=== PATIENT | male | born 1950 | race Caucasian/White ===

== ENCOUNTER 2017-04-27 14:41 | Inpatient (IN) ==
--- NOTE | 2017-04-27 14:59 | Emergency Department Note ---
Disposition Clinical Impression: Failure to thrive Qualifiers: Failure to thrive age range: in adult Qualified Code(s): R62.7 - Adult failure to thrive Disposition: Admitted As Inpatient Condition: Good Time of Disposition: 19:35 General Adult HPI - General Chief complaint: ED Weakness Stated complaint: " Dizziness, weakness" Time Seen by Provider: 04/27/17 14:43 Source: patient Limitations: no limitations Nursing Notes Reviewed: Yes Vital Signs Reviewed: Yes - History of Present Illness HPI Narrative: Left group home AMA 2 days ago. Has been living in the [facility] ever since. Has not been able to eat or drink due to lack of resources. Pain Scale: 0 - Related Data Home Medications Medication Instructions Recorded Confirmed No Known Home Drugs 04/27/17 04/27/17 Allergies Allergy/AdvReac Type Severity Reaction Status Date / Time No Known Allergies Allergy Verified 03/01/16 14:48 All systems ED: reviewed and negative except as stated. Constitutional: Denies: fever, chills ENT ED: Denies: congestion Cardiovascular: Denies: chest pain, palpitations, syncope Respiratory: Denies: cough, dyspnea, wheezes Gastrointestinal: Denies: abdominal pain, nausea, vomiting, diarrhea, hematemesis, melena Genitourinary: Denies: urgency, dysuria, frequency, hematuria Musculoskeletal: Denies: back pain, neck pain Integumentary: Denies: rash, abrasion Neurological: Denies: headache, weakness, numbness, paresthesias Past Medical History - Past Medical History Attestation: Yes The following information was validated with the patient. Source: patient Medical history: Reports: COPD, diabetes, hyperlipidemia, hypertension Psychiatric history: Reports: no psych history - Social History Smoking Status: Current every day smoker Smokeless Tobacco Status: No Alcohol use: Reports: rarely Drug use: Reports: none Physical Exam - General Limitations: no limitations General appearance: alert, in no apparent distress, other (Very disheveled. Not dressed appropriately.) - Head Head exam: atraumatic, normocephalic, normal inspection - Eye Eye exam: Present: normal appearance, PERRL, EOMI - ENT ENT exam: normal exam, normal oropharynx, mucous membranes dry - Neck Neck exam: Present: normal inspection, full ROM, trachea midline. Absent: tenderness, meningismus, lymphadenopathy - Chest Chest inspection: Present: normal inspection, symmetric chest wall rise. Absent : tenderness, rash, abscess - Respiratory Respiratory exam: Present: normal lung sounds bilaterally. Absent: respiratory distress, accessory muscle use - Cardiovascular Cardiovascular exam: Present: regular rate, normal rhythm, normal heart sounds - Abdominal Exam Abdominal exam: Present: soft, Non-Tender. Absent: tenderness, distention, guarding, rebound, rigidity, organomegaly, Bennett's sign, Rovsing's sign, tenderness at McBurney's Point - Extremities Exam Extremities exam: Present: normal inspection, full ROM, normal capillary refill. Absent: tenderness, pedal edema - Back Exam Back exam: Present: normal inspection, full ROM. Absent: tenderness, CVA tenderness (R), CVA tenderness (L) - Neurological Exam Neurological exam: Present: alert, oriented X3 - Psychiatric Psychiatric exam: Present: normal affect, depressed - Skin Skin exam: Present: warm, dry, intact, normal color. Absent: rash, cyanosis, diaphoresis, erythema Course Course Narrative: The patient left the group home 2 days ago AGAINST MEDICAL ADVICE. States he has been living in the [facility] for the past 2 days. Has not been able to eat or drink. Does have a history of diabetes as well as hypertension. Also some mood disturbances. States that he has not been able to take any of this medication as he does not have this. He is sitting on the bed and appears to be tearful at this time. He denies any SI or HI. He denies any visual or auditory hallucinations. He has no medical complaints currently. States that he is hungry. Sounds are clear heart tones are normal. Abdomen is soft nontender. Denies any blood from his urine or stool. Denies any abdominal pain nausea vomiting or diarrhea. Patient is hypertensive while here. He does appear very disheveled. Has a foul smell about him. We will do basic lab workup on patient and likely admit him for failure to thrive. Does not appear as if the patient can care for himself. - Reevaluation(s) Reevaluation #1: We will admit patient for failure to thrive. - Consultations Consultation #1: Patient was accepted in stable condition by Sridhar denise nurse practitioner. Vital Signs Temperature 98.8 F 04/27/17 14:50 Pulse Rate 93 04/27/17 14:50 Respiratory Rate 18 04/27/17 14:50 Blood Pressure 194/111 10/13/17 14:50 O2 Sat by Pulse Oximetry 94 04/27/17 14:50 Temperature 98.0 F 04/28/17 08:10 Pulse Rate 87 04/28/17 08:10 Respiratory Rate 16 04/28/17 08:10 Blood Pressure 134/77 04/28/17 08:10 O2 Sat by Pulse Oximetry 94 04/28/17 08:10 Oxygen Delivery Oxygen Delivery Room Air Medical Decision Making - Lab Data Lab results reviewed: Yes I reviewed the patient's lab results. Result diagrams: 04/28/17 00:15 04/28/17 00:15 Lab Results 04/27/17 04/27/17 04/27/17 Range/Units 15:14 15:14 15:14 WBC 12.1 H (4.3-11.1) K/mcL RBC 4.97 (4.19-5.50) M/mcL Hgb 15.3 (12.9-16.9) g/dL Hct 44.6 (37.5-50.1) % MCV 89.7 (83.0-100.0) fL MCH 30.8 (28.0-33.3) pg MCHC 34.3 (31.6-35.5) g/dL RDW 13.2 (11.5-14.5) % Plt Count 241 (140-400) K/mcL MPV 10.2 (9.4-12.4) fL Immature Gran % 0.2 (0-4) % Seg Neutrophils % 77.3 % Lymphocytes % 12.0 % Monocytes % 9.5 % Eosinophils % 0.5 % Basophils % 0.5 % Neutrophils # 9.4 H (1.6-8.9) K/mcL Lymphocytes # 1.5 (0.6-4.6) K/mcL Monocytes # 1.2 (0.0-1.3) K/mcL Eosinophils # 0.1 (0.0-0.6) K/mcL Basophils # 0.1 (0.0-0.2) K/mcL Sodium 137 (136-145) mEq/L Potassium 4.1 (3.5-4.5) mEq/L Chloride 97 L (98-109) mEq/L Carbon Dioxide 31 H (19-29) mEq/L BUN 11 (8-26) mg/dL Creatinine 0.94 (0.72-1.25) mg/dL Est GFR ( Amer) > 60 (> 60) Est GFR (Non-Af Amer) > 60 (> 60) BUN/Creatinine Ratio 12 (6-26) Glucose 134 H (70-99) mg/dL Calculated Osmolality 285 (280-300) Calcium 9.9 (8.6-10.8) mg/dL Troponin I 0.01 (0-0.03) ng/mL Urine Color (Yellow) Urine Clarity (Clear) Urine pH (5.0-8.0) pH Units Ur Specific Holmes (1.010-1.025) Urine Protein (Neg-Trace) mg/dL Urine Glucose (UA) (Normal) mg/dL Urine Ketones (Negative) mg/dL Urine Blood (Negative) Urine Nitrite (Negative) Urine Bilirubin (Negative) Urine Urobilinogen (Normal) mg/dL Ur Leukocyte Esterase (Negative) Urine Microscopic RBC (0-3) per hpf Urine Microscopic WBC (0-3) per hpf Ur Squamous Epith Cells (None-Few) per lpf Urine Bacteria (None-Few) per hpf Hyaline Casts (None-Few) per lpf Ur Culture Indicated? (NO) 04/27/17 Range/Units 16:16 WBC (4.3-11.1) K/mcL RBC (4.19-5.50) M/mcL Hgb (12.9-16.9) g/dL Hct (37.5-50.1) % MCV (83.0-100.0) fL MCH (28.0-33.3) pg MCHC (31.6-35.5) g/dL RDW (11.5-14.5) % Plt Count (140-400) K/mcL MPV (9.4-12.4) fL Immature Gran % (0-4) % Seg Neutrophils % % Lymphocytes % % Monocytes % % Eosinophils % % Basophils % % Neutrophils # (1.6-8.9) K/mcL Lymphocytes # (0.6-4.6) K/mcL Monocytes # (0.0-1.3) K/mcL Eosinophils # (0.0-0.6) K/mcL Basophils # (0.0-0.2) K/mcL Sodium (136-145) mEq/L Potassium (3.5-4.5) mEq/L Chloride (98-109) mEq/L Carbon Dioxide (19-29) mEq/L BUN (8-26) mg/dL Creatinine (0.72-1.25) mg/dL Est GFR ( Amer) (> 60) Est GFR (Non-Af Amer) (> 60) BUN/Creatinine Ratio (6-26) Glucose (70-99) mg/dL Calculated Osmolality (280-300) Calcium (8.6-10.8) mg/dL Troponin I (0-0.03) ng/mL Urine Color Yellow (Yellow) Urine Clarity Clear (Clear) Urine pH 6.5 (5.0-8.0) pH Units Ur Specific Holmes 1.024 (1.010-1.025) Urine Protein 100 H (Neg-Trace) mg/dL Urine Glucose (UA) Normal (Normal) mg/dL Urine Ketones Trace H (Negative) mg/dL Urine Blood Negative (Negative) Urine Nitrite Negative (Negative) Urine Bilirubin Negative (Negative) Urine Urobilinogen Normal (Normal) mg/dL Ur Leukocyte Esterase Negative (Negative) Urine Microscopic RBC 5-15 H (0-3) per hpf Urine Microscopic WBC 0-3 (0-3) per hpf Ur Squamous Epith Cells Many H (None-Few) per lpf Urine Bacteria None Seen (None-Few) per hpf Hyaline Casts None Seen (None-Few) per lpf Ur Culture Indicated? NO (NO) - Radiology Data Radiology results reviewed: Yes I reviewed the patient's radiology results. Chest X-Ray 04/27/17 14:58 IMPRESSION: No acute abnormality. D/ / 04/27/2017 15:24:44 Kaz Rivera MD / fabrizio Interpreting Provider: Kaz Rivera MD - EKG Data EKG #1 EKG attestation: Yes I reviewed and interpreted this EKG. EKG results narrative: Normal sinus rhythm at a rate of 77. AL interval is 132. Scientology is 110. QT is 371. QTC is 403. No signs of acute ischemia. No significant change from previous EKG dated 2015. Attestation Statement - Attestation Attestation: I, Hi Mcdonald, examined this patient and my medical decision-making was reviewed with the PLANNING RN/PA/Advanced Practice Nurse/Resident Physician. I agree with the documented findings, disposition and treatment plan as described except to the extent set forth below. 59-year-old male brought to the emergency department by EMS for weakness. Patient states he has been living in the [facility] after signing out AMA from the group home for the past few weeks. Patient states he signed out from the group home because they were "being mean to him", he is unable to describe specific instances as to why he signed out. Patient states he has been living with friends however they do not have enough food to or water to support him and he is becoming weak. Patient has not syncopized, denies chest pain, shortness of breath, palpitations, abdominal pain, diarrhea, vomiting. Patient will be admitted to hospital for further care and evaluation of failure to thrive.
[2017-04-27 15:28] LABS: Basophils # 0.1 K/mcL (0.0-0.2); Basophils % 0.5 %; Eosinophils # 0.1 K/mcL (0.0-0.6); Eosinophils % 0.5 %; Hematocrit 44.6 % (37.5-50.1); Hemoglobin 15.3 g/dL (12.9-16.9); Immature Granulocytes % 0.2 % (0-4); Lymphocytes # 1.5 K/mcL (0.6-4.6); Mean Corpuscular HGB Conc 34.3 g/dL (31.6-35.5); Mean Corpuscular Hemoglobin 30.8 pg (28.0-33.3); Mean Corpuscular Volume 89.7 fL (83.0-100.0); Mean Platelet Volume 10.2 fL (9.4-12.4); Monocytes # 1.2 K/mcL (0.0-1.3); Monocytes % 9.5 %; Neutrophils # 9.4 K/mcL (1.6-8.9); Platelet Count 241 K/mcL (140-400); Red Blood Count 4.97 M/mcL (4.19-5.50); Red Cell Distribution Width 13.2 % (11.5-14.5); Segmented Neutrophils % 77.3 %
[2017-04-27 15:45] LABS: BUN/Creatinine Ratio 12 (6-26); Blood Urea Nitrogen 11 mg/dL (8-26); Calcium 9.9 mg/dL (8.6-10.8); Carbon Dioxide 31 mEq/L (19-29); Chloride 97 mEq/L (98-109); Glucose 134 mg/dL (70-99); Osmolality,Calculated 285 (280-300); Potassium 4.1 mEq/L (3.5-4.5); Sodium 137 mEq/L (136-145); eGFR For African Americans > 60 (> 60); eGFR For Non-African Americans > 60 (> 60)
[2017-04-27 16:34] LABS: Bilirubin,Urine Negative (Negative); Blood,Urine Negative (Negative); Clarity,Urine Clear (Clear); Color,Urine Yellow (Yellow); Glucose,Urine (UA) Normal (Normal); Ketones,Urine Trace mg/dL (Negative); Leukocyte Esterase,Urine Negative (Negative); Nitrite,Urine Negative (Negative); PH,Urine 6.5 pH Units (5.0-8.0); Protein,Urine 100 mg/dL (Neg-Trace); Specific Gravity,Urine 1.024 (1.010-1.025); Urobilinogen,Urine Normal (Normal)
[2017-04-27 16:36] LABS: Bacteria,Urine None Seen per hpf (None-Few); Hyaline Casts,Urine None Seen per lpf (None-Few); Squamous Epithelial Cell,Urine Many per lpf (None-Few); WBC,Urine 0-3 per hpf (0-3)
[2017-04-27] MEDS ORDERED: D5% in Water 1,000 ML IVC PRN (21:11)
[2017-04-27] MEDS ORDERED: Dextrose Gel 15 GM PO PRN ×2 (21:11)
[2017-04-27] MEDS ORDERED: *HR* Dextrose 50 % in Water (Syg) 50 ML SYRINGE IVP PRN (21:11)
[2017-04-27] MEDS: Insulin LISPRO 300 UNITS/3 ML VIAL SQ SCH (22:36)
[2017-04-27] MEDS ORDERED: Ondansetron 4 MG/2 ML VIAL IVP PRN (22:56)
[2017-04-27] MEDS ORDERED: Naloxone 0.4 MG/ML INJ IVP PRN (22:56)
[2017-04-27] MEDS ORDERED: *HR* HYDROcodone/Acet 5/325 mg TABLET PO PRN (22:56)
[2017-04-27] MEDS ORDERED: *HR* LORazepam 2 MG/ML VIAL IVP PRN (23:00)
--- NOTE | 2017-04-27 23:13 | Internal Med History&Physical ---
<Sridhar Villasenor - Last Filed: 04/27/17 23:42> Date of Encounter: 04/27/17 Time of Encounter: 21:00 Assessment and Plan (1) Leukocytosis Current visit: Yes Status: Acute Patient presents with WBC of 12.1 on admission. Denies recent illness, fever, chills, N/V. U/A negative for culture. Blood cultures x2 ordered. Will administer IVPB Rocephin 1,000 mg daily for infection coverage and adjust abx based on culture results. Mr. Castillo is a moderate risk for further morbidity based on current infection, history and risk factors, and lack of current resources and will be placed as observation status. Qualifiers: Leukocytosis type: unspecified Qualified Code(s): D72.829 - Elevated white blood cell count, unspecified (2) Failure to thrive Current visit: Yes Status: Acute Patient reports leaving SNF AMA two days ago and living in the [facility]. States he' s had nothing to eat or drink for two days and has no medications for his current medical conditions. SW consult ordered to help with possible placement for post-discharge planning. Diabetes education consult and nutrition consults ordered. Psychiatric consult ordered d/t patient's hx of anxiety, depression, and schizophrenia. Ativan 1 mg IVP Q6 for anxiety. Qualifiers: Failure to thrive age range: in adult Qualified Code(s): R62.7 - Adult failure to thrive (3) Homeless Current visit: Yes Status: Acute Patient reports leaving SNF AMA two days ago and living in the [facility]. Picked up by EMT squad and brought to ED. States he's had nothing to eat or drink for two days. SW consult ordered to help with possible placement for post-discharge planning. Diabetes education consult and nutrition consults ordered. Psychiatric consult ordered d/t patient's hx of anxiety, depression, and schizophrenia. Ativan 1 mg IVP Q6 for anxiety. Monitor patient for signs of agitation or increased anxiety. (4) COPD (chronic obstructive pulmonary disease) Current visit: Yes Status: Chronic Hx of chronic COPD. Patient has mild expiratory wheezes on exam. DuoNebs Q6 scheduled. No O2 at this time d/t patient being high 90's on RA. Qualifiers: COPD type: unspecified COPD Qualified Code(s): J44.9 - Chronic obstructive pulmonary disease, unspecified (5) Diabetes Current visit: Yes Status: Chronic Patient reports history of chronic diabetes controlled by oral antihyperglycemic 's. No medications currently due to being homeless. BG checks before meals and at bedtime. Medium dose correction insulin sliding scale ordered with hypoglycemic protocol. A1c ordered in a.m. labs. Qualifiers: Diabetes mellitus type: type 2 Diabetes mellitus complication status: with unspecified complications Diabetes mellitus terminal gauger supervisor insulin use: without prison use Qualified Code(s): E11.8 - Type 2 diabetes mellitus with unspecified complications (6) HTN (hypertension) Current visit: Yes Status: Chronic Hx of chronic HTN. No meds currently d/t being homeless. Monitor patient and VS. Lisinopril ordered. Qualifiers: Hypertension type: essential hypertension Qualified Code(s): I10 - Essential (primary) hypertension (7) HLD (hyperlipidemia) Current visit: Yes Status: Chronic Hx of chronic HLD. Patient currently not taking medications due to being homeless. Lipid panel ordered in a.m. labs. Lipitor 20 mg daily ordered. Qualifiers: Hyperlipidemia type: pure hypercholesterolemia Qualified Code(s): E78.00 - Pure hypercholesterolemia, unspecified; E78.0 - Pure hypercholesterolemia (8) DVT prophylaxis Current visit: Yes Status: Acute Bilateral SCDs on patient's LEs for DVT prophylaxis due to patient's anxiety and psychiatric state. Will avoid unnecessary needle sticks. Internal Medicine - H&P: HPI Chief complaint: Weakness/Homeless Admitted From: Emergency Dept Plans for Post Hospital Care: Transfer Other (SW consult to help determine placement of patient) History of present illness: Mr. Castillo is a 67 year old male with medical history of COPD, diabetes controlled with oral anti-hyperglycemics, hyperlipidemia, and hypertension presents from the ED with chief complaint of weakness, dizziness, difficulty urinating, and homelessness. Patient states he was a resident at [facility] until 2 days ago when he left AMA. He states he has been living in the [facility] for the past 2 days and has not been able to eat or drink due to lack of resources. He states that he has a history of psychiatric issues including anxiety and schizophrenia. Patient has no SI or HI at this time. Patient states he currently does not take any medications for his diabetes, HLD , or HTN due to being homeless. He denies recent illness, fever, chills, vomiting, nausea, headache, changes in vision, abdominal pain, chest pain, palpitations, numbness and tingling, neurological deficits, weakness, unusual bleeding, lightheadedness, presyncope, or syncope. Past Med Surg Social Fam HX - Past Medical History Source: patient Medical history: COPD, diabetes, hyperlipidemia, hypertension Psychiatric history: anxiety, depression, schizophrenia - Social History Smoking Status: Current every day smoker Packs per day: 3 PPD when he has them Smokeless Tobacco Status: No Alcohol use: rarely Drug use: none Occupational status: unemployed Current living situation: Homeless Activity Level: Independent ambulation, Uses cane/walker Recent Out of Country Travel Within the Last 8 Weeks: No Exposure or Possible Exposure to Illness During Travel: No - Family History Father Race: Family Member Ethnicity: Non- Living Status: Age at : 85 Cause of : Renal failure Hx Family Genitourinary Disorders: Yes (CKD) Mother Race: Family Member Ethnicity: Non- Living Status: Age at : 60 Cause of : CA Hx Family Cardiac Disorders: Yes (CA) Hx Family Endocrine Disorder: Yes (DM) Brother Race: Family Member Ethnicity: Non- Living Status: Age at : 64 Cause of : Liver disease Hx Family Endocrine Disorder: Yes (Liver disease) Sister History Unknown: Yes Race: Family Member Ethnicity: Non- Living Status: Still Living Internal Medicine - H&P: Meds No Known Home Drugs 04/27/17 [History] 3 Allergy/AdvReac Type Severity Reaction Status Date / Time No Known Allergies Allergy Verified 03/01/16 14:48 All Systems PM: A 10-system review of systems was performed and is negative for pertinent findings except as documented above in the HPI. - Constitutional Constitutional: no chills, no fever(s), no night sweats - EENT Eyes: no change in vision, no discharge, no pain, no photophobia Ears: no ear discharge, no ear pain, no tinnitus Nose, mouth and throat: no dysphagia, no nasal discharge, no neck pain, no sore throat - Breasts Breasts: as per HPI - Cardiovascular Cardiovascular ROS IM: no chest pain, no diaphoresis, no dyspnea, no lightheadedness, no palpitations, no syncope - Respiratory Respiratory: no cough, no dyspnea, no wheezing, no excessive phlegm production - Gastrointestinal Gastrointestinal: no abdominal pain, no diarrhea, no hematemesis, no hematochezia, no melena, no nausea, no vomiting - Genitourinary Genitourinary ROS male: as per HPI, difficulty urinating - Musculoskeletal Musculoskeletal ROS IM: no numbness, no tingling - Integumentary Integumentary IM: no rash, no unusual bruising - Neurological Neurological ROS: no confusion, no convulsions, no focal weakness, no numbness, no tingling, no tremor(s) - Psychiatric Psychiatric: as per HPI, anxiety, depression - Endocrine Endocrine IM: as per HPI - Hematologic/Lymphatic Hematologic/Lymphatic: no easy bruising - Allergic/Immunologic Allergic/Immunologic: as per HPI - Constitutional Vitals: Temp Pulse Resp BP Pulse Ox 99.0 F 84 19 175/94 94 04/27/17 20:35 04/27/17 20:35 04/27/17 20:35 04/27/17 20:35 04/27/17 20:35 General appearance: Present: cooperative, disheveled, mild distress (Anxiety), A &O X 3, pleasant, answers questions appropriately - Head Head exam: Present: atraumatic, normocephalic - Eye Eye exam: Present: PERRL, conjuntiva pink, sclera anicteric Pupils: Present: PERRL - ENT ENT exam: Present: normal exam, normal external ear exam - Neck Neck exam general surgery: Present: normal inspection, supple, trachea midline. Absent: lymphadenopathy - Respiratory Respiratory exam: Present: CTAB. Absent: accessory muscle use, rales, rhonchi, wheezes - Cardiovascular Cardiovascular exam: Present: RRR, +S1, +S2. Absent: diastolic murmur, gallop, rubs, systolic murmur - GI/Abdominal GI/Abdominal exam: Present: normal bowel sounds, soft, no peritoneal signs. Absent: distended, tenderness - Rectal Rectal exam: Present: deferred - Additional comments: exam deferred. - Extremities Exam Extremities exam: Present: warm, radial pulses palpable and symmetrical. Absent : calf tenderness, cyanotic, pedal edema - Back Exam Back exam: Present: normal inspection - Neurological Exam Neurological exam: Present: CN II-XII intact, oriented X3, no focal deficits. Absent: pronater drift, facial droop, speech deficit - Psychiatric Psychiatric exam: Present: anxious - Skin Skin exam: Present: dry, intact Internal Med - H&P Results - Labs CBC & Chem 7: 04/27/17 15:14 04/27/17 15:14 - EKG Data EKG shows normal: sinus rhythm - EKG Data Prior EKG available for review: yes When compared to previous EKG: there is no significant change EKG comments: 04/27/17 23:22 EKG dated 03/01/16 shows sinus rhythm. EKG dated 04/27/17 shows sinus rhythm, indeterminate axis. - Diagnostic Studies Chest x-ray Additional comments: Impressions Chest X-Ray 04/27/17 14:58 IMPRESSION: No acute abnormality. D/ / 04/27/2017 15:24:44 Kaz iRvera MD / fabrizio Interpreting Provider: Kaz Rivera MD <Marisol Degroot K - Last Filed: 04/28/17 02:33> Date of Encounter: 04/27/17 Internal Medicine - H&P: HPI History of present illness: Mr. Castillo is a 67 year old male All Systems PM: A 10-system review of systems was performed and is negative for pertinent findings except as documented above in the HPI. - Constitutional Vitals: Temp Pulse Resp BP Pulse Ox 98.5 F 72 22 156/77 92 04/28/17 00:16 04/28/17 00:16 04/28/17 00:16 04/28/17 00:16 04/28/17 00:16 Internal Med - H&P Results - Labs CBC & Chem 7: 04/28/17 00:15 04/28/17 00:15 Labs: Short CBC 04/28/17 Range/Units 00:15 WBC 11.9 H (4.3-11.1) K/mcL Hgb 15.3 (12.9-16.9) g/dL Hct 44.9 (37.5-50.1) % Plt Count 229 (140-400) K/mcL Neutrophils # 8.4 (1.6-8.9) K/mcL BMP 04/28/17 00:15 Sodium 138 Potassium 3.7 Chloride 99 Carbon Dioxide 27 BUN 14 Creatinine 0.96 Glucose 119 H Calcium 9.7 Liver Function 04/28/17 Range/Units 00:15 Total Bilirubin 0.3 (0.2-1.2) mg/dL AST 24 (5-34) Units/L ALT 14 (0-55) Units/L Alkaline Phosphatase 45 (38-126) Units/L Albumin 4.0 (3.5-5.0) g/dL - Attending Attestation Patient was seen personally and independently and examined. Apparently he was in intermediate and left AMA. He mentions that some people came to intermediate and invited him to stay in the words. Patient states that intermediate staff was conspired against him. Patient has history of schizophrenia/ paranoia. On physical examination he is quite unremarkable. His white count was elevated therefore we started Rocephin but if there is no obvious sign of infection then it can be discontinued for discharge. He was complaining of difficulty in urination therefore Flomax has been added. We have put him on sliding scale for his diabetes and he started him on lisinopril for his blood pressure. I would recommend to the morning team to call psychiatry as I think ideally patient should be a long-term psychiatric unit.
[2017-04-27] MEDS ORDERED: *HR* LORazepam 1 MG TABLET PO PRN (23:20)
[2017-04-27] MEDS: Pantoprazole 40 MG VIAL IVP SCH (23:50)
[2017-04-27] MEDS: Aspirin Enteric Coated 81 MG Tablet PO SCH (23:50)
[2017-04-28 00:35] LABS: Basophils # 0.1 K/mcL (0.0-0.2); Basophils % 0.6 %; Eosinophils # 0.2 K/mcL (0.0-0.6); Eosinophils % 1.3 %; Hematocrit 44.9 % (37.5-50.1); Hemoglobin 15.3 g/dL (12.9-16.9); Immature Granulocytes % 0.3 % (0-4); Lymphocytes # 2.1 K/mcL (0.6-4.6); Lymphocytes % 17.7 %; Mean Corpuscular HGB Conc 34.1 g/dL (31.6-35.5); Mean Corpuscular Hemoglobin 31.1 pg (28.0-33.3); Mean Corpuscular Volume 91.3 fL (83.0-100.0); Mean Platelet Volume 10.5 fL (9.4-12.4); Monocytes # 1.2 K/mcL (0.0-1.3); Monocytes % 9.6 %; Neutrophils # 8.4 K/mcL (1.6-8.9); Platelet Count 229 K/mcL (140-400); Red Blood Count 4.92 M/mcL (4.19-5.50); Red Cell Distribution Width 13.2 % (11.5-14.5); Segmented Neutrophils % 70.5 %
[2017-04-28 00:46] LABS: INR 1.1; Prothrombin Time 11.6 Seconds (9.4-12.1)
[2017-04-28 00:48] LABS: Activated Partial Thrombo Time 26.7 Seconds (26.0-36.0)
[2017-04-28 00:52] LABS: Alanine Aminotransferase 14 Units/L (0-55); Albumin/Globulin Ratio 1.2 (1.1-2.2); Alkaline Phosphatase 45 Units/L (38-126); Aspartate Amino Transferase 24 Units/L (5-34); BUN/Creatinine Ratio 15 (6-26); Bilirubin,Total 0.3 mg/dL (0.2-1.2); Blood Urea Nitrogen 14 mg/dL (8-26); Calcium 9.7 mg/dL (8.6-10.8); Carbon Dioxide 27 mEq/L (19-29); Chloride 99 mEq/L (98-109); Cholesterol 124 mg/dL (< 200); Globulin 3.3 g/dL (2.4-3.5); Glucose 119 mg/dL (70-99); HDL Cholesterol 31 mg/dL (40-59); LDL Cholesterol,Calculated 74 mg/dL (0-99); Osmolality,Calculated 288 (280-300); Potassium 3.7 mEq/L (3.5-4.5); Sodium 138 mEq/L (136-145); Total Protein 7.3 g/dL (6.0-8.3); Triglycerides 96 mg/dL (< 150); eGFR For African Americans > 60 (> 60); eGFR For Non-African Americans > 60 (> 60)
[2017-04-28 01:20] LABS: Hemoglobin A1C 5.7 %
[2017-04-28] MEDS: Ipratropium/Albuterol Neb 3 ML IH SCH ×2 (04:30→10:58)
[2017-04-28] MEDS: Insulin LISPRO 300 UNITS/3 ML VIAL SQ SCH ×4 (10:14→20:55)
[2017-04-28] MEDS: Acetaminophen 325 MG TABLET PO PRN (10:15)
[2017-04-28] MEDS: Aspirin Enteric Coated 81 MG Tablet PO SCH (10:15)
[2017-04-28] MEDS: Pantoprazole 40 MG VIAL IVP SCH (10:16)
--- NOTE | 2017-04-28 10:47 | Consult Note ---
Date of Encounter: 04/28/17 Time of Encounter: 10:45 Assessment & Recommendation (1) Adjustment disorder with mixed disturbance of emotions and conduct Current visit: Yes Status: Acute Assessment & Recommendation: At this point I would recommend continue when necessary antianxiety medications for example Ativan on Klonopin. I would recommend a referral to patient care assistant to help finding a better placement for the patient. At this point there is no further psychiatric intervention or furthur treatment is needed. (2) History of schizophrenia Current visit: Yes Status: Acute Assessment & Recommendation: At this point patient is denying any overt psychotic symptoms. He is able to engage in a meaningful conversation. He does not seem to be responding to internal stimuli. He does not wish to talk about his previous diagnoses or any treatment strategies related to his previous diagnosis of schizophrenia. Patient is oriented to time place and person and is demonstrating the capacity to comprehend and understand his treatment choices and has the ability to make informed consent and choices for himself. History of Present Illness Patient: new to practice Requesting Physician: Rinku Loja MD Reason for consult: History of schizophrenia and anxiety History of present illness: Mr. Castillo is a 67 year old male who [facility] after he was brought in with complaints of leaving skilled nursing against medical advise and was living in the [facility] with a couple of friends for the last 2 nights. Patient has history of schizophrenia. A psych consult was given to evaluate patient and for further recommendations regarding his history of schizophrenia. Upon interviewing today patient seems to be alert and oriented, coherent and logical and goal-directed. He told me that he was placed in a skilled nursing on the recommendation of his pillowcase maker approximately a year and a half ago. He reported that this skilled nursing is a bad place for him and he does not wish to be there anymore. He reported that he is not receiving the proper treatment from the staff at the skilled nursing. When I started exploring his past history of schizophrenia patient told me very clearly that he does not wish to talk about his prior diagnosis or treatment. He denies any auditory hallucinations or any delusions. He was able to engage in a meaningful conversation without any loosening of association or tangentiality. He did appear slightly anxious and nervous. He was denying any depressive symptoms. He was denying any suicidal or homicidal ideation he told me "I want to live that is why I left skilled nursing and am here to get help finding a different skilled nursing". Throughout the interview patient remained focus on the topic and did not appear to be responding to any internal stimuli. He is not receiving any psychiatric care and is not on any psychotropic medications. Patient is his own guardian and he understands and comprehends fairly well and is demonstrating the capacity to make decisions and choices for himself CC: Rinku Loja MD Past Med Surg Social Fam HX - Past Medical History Medical history: COPD, diabetes, hyperlipidemia, hypertension - Past Psychiatric History Family psychiatric history: Unknown Family History of Suicide: Unknown - Social History Smoking Status: Current every day smoker Smokeless Tobacco Status: No Alcohol use: rarely Drug use: none Occupational status: retired, disabled Current living situation: Homeless Activity Level: Independent ambulation Recent Out of Country Travel Within the Last 8 Weeks: No Exposure or Possible Exposure to Illness During Travel: No Additional social history: Patient reported that he was born in [place]. He has 2 sisters. He was once his many years ago. He does not have any children. He is on disability and is currently homeless. Denies any legal issues - Family History Father Race: Family Member Ethnicity: Non- Living Status: Age at : 85 Cause of : Renal failure Hx Family Cardiac Disorders: Yes (RI) Hx Family Genitourinary Disorders: Yes (CKD) Mother Race: Family Member Ethnicity: Non- Living Status: Age at : 60 Cause of : RI Hx Family Cardiac Disorders: Yes (RI) Hx Family Endocrine Disorder: Yes (DM) Brother Race: Family Member Ethnicity: Non- Living Status: Age at : 64 Cause of : Liver disease Hx Family Endocrine Disorder: Yes (Liver disease) Sister History Unknown: Yes Race: Family Member Ethnicity: Non- Living Status: Still Living Medications & Allergies No Known Home Drugs 04/27/17 [History] 3 Allergy/AdvReac Type Severity Reaction Status Date / Time No Known Allergies Allergy Verified 03/01/16 14:48 Review of Systems Psychiatric: Reports: anxiety, irritability Mental Status Exam Patient orientation: Yes Person, Yes Time, Yes Place Level of alertness: Alert Patient appearance: Unkempt Behavior: anxious, restless Psychomotor activity: Increased Eye contact: Maintains Eye Contact Mood description: Anxious Affect description: dysphoric, anxious Speech pattern: Normal rate, Normal rhythm, Normal tone Speech volume: Normal Thought process: Linear, Goal Oriented Thought content: No Suicidal ideation, No Homicidal ideation, No Overt delusions Perceptual disturbances: No Auditory hallucinations, No Visual hallucinations Attention span: Capable of Focused Attention Memory description: Grossly Intact Intelligence estimate: Average Judgment: Limited Insight: Minimal Results - Vital Signs Vital signs: Temp Pulse Resp BP Pulse Ox 98.0 F 87 16 134/77 94 04/28/17 08:10 04/28/17 08:10 04/28/17 08:10 04/28/17 08:10 04/28/17 08:10 - Labs Labs: Laboratory Last Values WBC 11.9 K/mcL (4.3-11.1) H 04/28/17 00:15 RBC 4.92 M/mcL (4.19-5.50) 04/28/17 00:15 Hgb 15.3 g/dL (12.9-16.9) 04/28/17 00:15 Hct 44.9 % (37.5-50.1) 04/28/17 00:15 MCV 91.3 fL (83.0-100.0) 04/28/17 00:15 MCH 31.1 pg (28.0-33.3) 04/28/17 00:15 MCHC 34.1 g/dL (31.6-35.5) 04/28/17 00:15 RDW 13.2 % (11.5-14.5) 04/28/17 00:15 Plt Count 229 K/mcL (140-400) 04/28/17 00:15 MPV 10.5 fL (9.4-12.4) 04/28/17 00:15 Immature Gran % 0.3 % (0-4) 04/28/17 00:15 Seg Neutrophils % 70.5 % 04/28/17 00:15 Lymphocytes % 17.7 % 04/28/17 00:15 Monocytes % 9.6 % 04/28/17 00:15 Eosinophils % 1.3 % 04/28/17 00:15 Basophils % 0.6 % 04/28/17 00:15 Neutrophils # 8.4 K/mcL (1.6-8.9) 04/28/17 00:15 Lymphocytes # 2.1 K/mcL (0.6-4.6) 04/28/17 00:15 Monocytes # 1.2 K/mcL (0.0-1.3) 04/28/17 00:15 Eosinophils # 0.2 K/mcL (0.0-0.6) 04/28/17 00:15 Basophils # 0.1 K/mcL (0.0-0.2) 04/28/17 00:15 PT 11.6 Seconds (9.4-12.1) 04/28/17 00:15 INR 1.1 04/28/17 00:15 APTT 26.7 Seconds (26.0-36.0) 04/28/17 00:15 Sodium 138 mEq/L (136-145) 04/28/17 00:15 Potassium 3.7 mEq/L (3.5-4.5) 04/28/17 00:15 Chloride 99 mEq/L (98-109) 04/28/17 00:15 Carbon Dioxide 27 mEq/L (19-29) 04/28/17 00:15 BUN 14 mg/dL (8-26) 04/28/17 00:15 Creatinine 0.96 mg/dL (0.72-1.25) 04/28/17 00:15 Est GFR ( Amer) > 60 (> 60) 04/28/17 00:15 Est GFR (Non-Af Amer) > 60 (> 60) 04/28/17 00:15 BUN/Creatinine Ratio 15 (6-26) 04/28/17 00:15 Glucose 119 mg/dL (70-99) H 04/28/17 00:15 POC Glucose 172 (58-89) H 04/27/17 20:33 Est Mean Plasma Glucose 117 mg/dl 04/28/17 00:15 Hemoglobin A1c 5.7 % (-5.6) H 04/28/17 00:15 Calculated Osmolality 288 (280-300) 04/28/17 00:15 Calcium 9.7 mg/dL (8.6-10.8) 04/28/17 00:15 Magnesium 2.0 mg/dL (1.6-2.6) 04/28/17 00:15 Total Bilirubin 0.3 mg/dL (0.2-1.2) 04/28/17 00:15 AST 24 Units/L (5-34) 04/28/17 00:15 ALT 14 Units/L (0-55) 04/28/17 00:15 Alkaline Phosphatase 45 Units/L (38-126) 04/28/17 00:15 Troponin I 0.01 ng/mL (0-0.03) 04/27/17 15:14 Serum Total Protein 7.3 g/dL (6.0-8.3) 04/28/17 00:15 Albumin 4.0 g/dL (3.5-5.0) 04/28/17 00:15 Globulin 3.3 g/dL (2.4-3.5) 04/28/17 00:15 Albumin/Globulin Ratio 1.2 (1.1-2.2) 04/28/17 00:15 Triglycerides 96 mg/dL (< 150) 04/28/17 00:15 Cholesterol 124 mg/dL (< 200) 04/28/17 00:15 LDL Cholesterol, Calc 74 mg/dL (0-99) 04/28/17 00:15 VLDL Cholesterol, Calc 19 mg/dL (< 31) 04/28/17 00:15 HDL Cholesterol 31 mg/dL (40-59) L 04/28/17 00:15 Cholesterol/HDL Ratio 4.0 (0-4.9) 04/28/17 00:15 Urine Color Yellow (Yellow) 04/27/17 16:16 Urine Clarity Clear (Clear) 04/27/17 16:16 Urine pH 6.5 pH Units (5.0-8.0) 04/27/17 16:16 Ur Specific [place] 1.024 (1.010-1.025) 04/27/17 16:16 Urine Protein 100 mg/dL (Neg-Trace) H 04/27/17 16:16 Urine Glucose (UA) Normal mg/dL (Normal) 04/27/17 16:16 Urine Ketones Trace mg/dL (Negative) H 04/27/17 16:16 Urine Blood Negative (Negative) 04/27/17 16:16 Urine Nitrite Negative (Negative) 04/27/17 16:16 Urine Bilirubin Negative (Negative) 04/27/17 16:16 Urine Urobilinogen Normal mg/dL (Normal) 04/27/17 16:16 Ur Leukocyte Esterase Negative (Negative) 04/27/17 16:16 Urine Microscopic RBC 5-15 per hpf (0-3) H 04/27/17 16:16 Urine Microscopic WBC 0-3 per hpf (0-3) 04/27/17 16:16 Ur Squamous Epith Cells Many per lpf (None-Few) H 04/27/17 16:16 Urine Bacteria None Seen per hpf (None-Few) 04/27/17 16:16 Hyaline Casts None Seen per lpf (None-Few) 04/27/17 16:16 Ur Culture Indicated? NO (NO) 04/27/17 16:16 Consult Discharge Plan - Plan Referrals: Ronaldo Parr MD [Primary Care Provider] -
--- NOTE | 2017-04-28 12:25 | Internal Med Progress Note ---
<Darshan Leyva - Last Filed: 04/28/17 14:53> Date of Encounter: 04/28/17 Time of Encounter: 12:09 - Assessment and plan (1) Leukocytosis Current Visit: Yes Status: Acute Assessment and plan: likely reactive from dehydration. Plan: continue oral hydration. no signs of infection at this time. UA shows no signs of UTI discontinued ceftriaxone and monitor. Qualifiers: Leukocytosis type: unspecified Qualified Code(s): D72.829 - Elevated white blood cell count, unspecified (2) Homeless Current Visit: Yes Status: Acute Assessment and plan: patient was formerly at [facility] because he was placed there by his forensic social worker. he left [place] a few days ago because he did not like how he was treated there. he left and stayed in the [facility] a few days. consult to renal social worker for placement. (3) COPD (chronic obstructive pulmonary disease) Current Visit: Yes Status: Chronic Assessment and plan: lungs clear on exam. change duonebs to PRN not in acute exacerbation. Qualifiers: COPD type: unspecified COPD Qualified Code(s): J44.9 - Chronic obstructive pulmonary disease, unspecified (4) Diabetes Current Visit: Yes Status: Chronic Assessment and plan: was taking metformin, but has not been taking it due to leaving senior living and being homeless. continue medium dose sliding scale, ADA diet. A1C 5.7% ACHS accuchecks. Qualifiers: Diabetes mellitus type: type 2 Diabetes mellitus complication status: with unspecified complications Diabetes mellitus measurement analyst insulin use: without measurement analyst use Qualified Code(s): E11.8 - Type 2 diabetes mellitus with unspecified complications (5) HTN (hypertension) Current Visit: Yes Status: Chronic Assessment and plan: continue lisinopril. patient has hx of HTN but was not on any meds. Qualifiers: Hypertension type: essential hypertension Qualified Code(s): I10 - Essential (primary) hypertension (6) HLD (hyperlipidemia) Current Visit: Yes Status: Chronic Assessment and plan: Hx of chronic HLD. Patient currently not taking medications due to being homeless. Lipid panel ordered in a.m. labs. 10 year ASCVD risk calculated at 46.7%. high intensity statin recommended Plan: stop atorvastatin 20, change to atorvastatin 40 Qualifiers: Hyperlipidemia type: pure hypercholesterolemia Qualified Code(s): E78.00 - Pure hypercholesterolemia, unspecified; E78.0 - Pure hypercholesterolemia (7) DVT prophylaxis Current Visit: Yes Status: Acute Assessment and plan: ambulate TID EPCD avoid unnecessary needle sticks due to patient's severe anxiety. - Constitutional Vitals: Temp Pulse Resp BP Pulse Ox 98.0 F 72 16 148/81 93 04/28/17 11:12 04/28/17 11:12 04/28/17 11:12 04/28/17 11:12 04/28/17 11:12 General appearance: Present: cooperative, disheveled, mild distress (Anxiety), A &O X 3, pleasant, answers questions appropriately Internal Medicine: Result - Labs CBC & Chem 7: 04/28/17 00:15 04/28/17 00:15 Labs: Short CBC 04/28/17 Range/Units 00:15 WBC 11.9 H (4.3-11.1) K/mcL Hgb 15.3 (12.9-16.9) g/dL Hct 44.9 (37.5-50.1) % Plt Count 229 (140-400) K/mcL Neutrophils # 8.4 (1.6-8.9) K/mcL BMP 04/28/17 00:15 Sodium 138 Potassium 3.7 Chloride 99 Carbon Dioxide 27 BUN 14 Creatinine 0.96 Glucose 119 H Calcium 9.7 Liver Function 04/28/17 Range/Units 00:15 Total Bilirubin 0.3 (0.2-1.2) mg/dL AST 24 (5-34) Units/L ALT 14 (0-55) Units/L Alkaline Phosphatase 45 (38-126) Units/L Albumin 4.0 (3.5-5.0) g/dL - ABG Interpretation ABG results: PT/INR, D-dimer PT 11.6 Seconds (9.4-12.1) 04/28/17 00:15 Consult Discharge Plan - Plan Referrals: Ronaldo Parr MD [Primary Care Provider] - <Rinku Loja - Last Filed: 04/28/17 17:16> Date of Encounter: 04/28/17 - Constitutional Vitals: Temp Pulse Resp BP Pulse Ox 97.8 F 68 16 147/80 97 04/28/17 16:11 04/28/17 16:11 04/28/17 16:11 04/28/17 16:11 04/28/17 16:11 Internal Medicine: Result - Labs CBC & Chem 7: 04/28/17 00:15 04/28/17 00:15 - ABG Interpretation ABG results: PT/INR, D-dimer PT 11.6 Seconds (9.4-12.1) 04/28/17 00:15 - Attending Attestation I have seen and examined the patient independently. I have discussed with resident Dr. Leyva regarding the management plan. Agree with the documentation. Patient has history of schizophrenia. He is homeless and need a new placement. We will continually monitor patient as he is in hospital. Psychiatry consult appreciated, ativan when necessary for anxiety. No further psychiatry treatment is recommended.
[2017-04-28] MEDS ORDERED: Ipratropium/Albuterol Neb 3 ML IH PRN (12:31)
[2017-04-29 01:37] LABS: Basophils # 0.1 K/mcL (0.0-0.2); Basophils % 0.9 %; Eosinophils # 0.3 K/mcL (0.0-0.6); Eosinophils % 2.8 %; Hematocrit 39.3 % (37.5-50.1); Immature Granulocytes % 0.2 % (0-4); Lymphocytes # 2.3 K/mcL (0.6-4.6); Lymphocytes % 26.5 %; Mean Corpuscular HGB Conc 34.1 g/dL (31.6-35.5); Mean Corpuscular Hemoglobin 30.7 pg (28.0-33.3); Mean Corpuscular Volume 90.1 fL (83.0-100.0); Mean Platelet Volume 10.5 fL (9.4-12.4); Monocytes % 10.8 %; Neutrophils # 5.2 K/mcL (1.6-8.9); Platelet Count 191 K/mcL (140-400); Red Blood Count 4.36 M/mcL (4.19-5.50); Segmented Neutrophils % 58.8 %
[2017-04-29 01:41] LABS: Hemoglobin 13.4 g/dL (12.9-16.9)
[2017-04-29 01:49] LABS: Alanine Aminotransferase 15 Units/L (0-55); Albumin 3.5 g/dL (3.5-5.0); Albumin/Globulin Ratio 1.3 (1.1-2.2); Alkaline Phosphatase 39 Units/L (38-126); Aspartate Amino Transferase 24 Units/L (5-34); BUN/Creatinine Ratio 15 (6-26); Bilirubin,Total 0.6 mg/dL (0.2-1.2); Blood Urea Nitrogen 16 mg/dL (8-26); Calcium 8.9 mg/dL (8.6-10.8); Carbon Dioxide 28 mEq/L (19-29); Chloride 97 mEq/L (98-109); Globulin 2.8 g/dL (2.4-3.5); Glucose 128 mg/dL (70-99); Osmolality,Calculated 281 (280-300); Potassium 4.1 mEq/L (3.5-4.5); Sodium 134 mEq/L (136-145); Total Protein 6.3 g/dL (6.0-8.3); eGFR For African Americans > 60 (> 60); eGFR For Non-African Americans > 60 (> 60)
[2017-04-29] MEDS: Aspirin Enteric Coated 81 MG Tablet PO SCH (07:32)
[2017-04-29] MEDS: Insulin LISPRO 300 UNITS/3 ML VIAL SQ SCH ×4 (07:34→20:37)
--- NOTE | 2017-04-29 11:10 | Electrocardiograph Report ---
[address] [address] Test Date: 2017-04-27 Pat Name: Sridhar Castillo Department: 104 Room: [facility] Gender: M Mechanical System Technician: ADILIA : 1950 Requested By: Kristina Dow Order Number: [id number] Reading MD: Hi Bang Measurements Intervals [place] Rate: 77 P: 17 RI: 132 QRS: 72 QRSD: 110 T: 26 QT: 371 QTc: 403 Interpretive Statements SINUS RHYTHM Electronically Signed On 04-29-2017 11:08:45 EDT by Hi Bang
--- NOTE | 2017-04-29 12:22 | Internal Med Progress Note ---
<Darshan Leyva - Last Filed: 04/29/17 12:19> Date of Encounter: 04/29/17 Time of Encounter: 12:20 - Assessment and plan (1) Homeless Current Visit: Yes Status: Acute Assessment and plan: patient was formerly at [facility] custodial because he was placed there by his social work manager. he left [place] a few days ago because he did not like how he was treated there. he left and stayed in the [facility] a few days. consult to social science manager for placement. (2) Leukocytosis Current Visit: Yes Status: Resolved Assessment and plan: resolved. Plan: continue oral hydration. no signs of infection at this time. UA shows no signs of UTI discontinued ceftriaxone and monitor. Qualifiers: Leukocytosis type: unspecified Qualified Code(s): D72.829 - Elevated white blood cell count, unspecified (3) COPD (chronic obstructive pulmonary disease) Current Visit: Yes Status: Chronic Assessment and plan: lungs clear on exam. change duonebs to PRN not in acute exacerbation. Qualifiers: COPD type: unspecified COPD Qualified Code(s): J44.9 - Chronic obstructive pulmonary disease, unspecified (4) Diabetes Current Visit: Yes Status: Chronic Assessment and plan: was taking metformin, but has not been taking it due to leaving custodial and being homeless. continue medium dose sliding scale, ADA diet. A1C 5.7% ACHS accuchecks. Qualifiers: Diabetes mellitus type: type 2 Diabetes mellitus complication status: with unspecified complications Diabetes mellitus exterminator helper insulin use: without assisted use Qualified Code(s): E11.8 - Type 2 diabetes mellitus with unspecified complications (5) HTN (hypertension) Current Visit: Yes Status: Chronic Assessment and plan: continue lisinopril. patient has hx of HTN but was not on any meds. Qualifiers: Hypertension type: essential hypertension Qualified Code(s): I10 - Essential (primary) hypertension (6) HLD (hyperlipidemia) Current Visit: Yes Status: Chronic Assessment and plan: Hx of chronic HLD. Patient currently not taking medications due to being homeless. Lipid panel ordered in a.m. labs. 10 year ASCVD risk calculated at 46.7%. high intensity statin recommended Plan: stop atorvastatin 20, change to atorvastatin 40 Qualifiers: Hyperlipidemia type: pure hypercholesterolemia Qualified Code(s): E78.00 - Pure hypercholesterolemia, unspecified; E78.0 - Pure hypercholesterolemia (7) DVT prophylaxis Current Visit: Yes Status: Acute Assessment and plan: ambulate TID EPCD avoid unnecessary needle sticks due to patient's severe anxiety. - Subjective Interval history: 67M evaluated at bedside. patient is extremelly anxious about where he will go to live. he denies any new problems today. - Constitutional Vitals: Temp Pulse Resp BP Pulse Ox 97.4 F L 69 20 166/87 95 04/29/17 11:27 04/29/17 11:27 04/29/17 11:27 04/29/17 11:27 04/29/17 11:27 General appearance: Present: cooperative, disheveled, mild distress (Anxiety), A &O X 3 - Head Head exam: Present: atraumatic, normocephalic - Neck Neck exam general surgery: Present: supple, trachea midline - Respiratory Respiratory exam: Present: CTAB - Cardiovascular Cardiovascular exam: Present: RRR, +S1, +S2 - GI/Abdominal GI/Abdominal exam: Present: normal bowel sounds, soft. Absent: distended, tenderness - Extremities Exam Extremities exam: Absent: cyanotic, pedal edema - Neurological Exam Neurological exam: Present: alert, oriented X3, no focal deficits - Psychiatric Psychiatric exam: Present: normal affect, normal mood Internal Medicine: Result - Labs CBC & Chem 7: 04/29/17 01:00 04/29/17 01:00 Labs: Short CBC 04/29/17 Range/Units 01:00 WBC 8.8 (4.3-11.1) K/mcL Hgb 13.4 D (12.9-16.9) g/dL Hct 39.3 (37.5-50.1) % Plt Count 191 (140-400) K/mcL Neutrophils # 5.2 (1.6-8.9) K/mcL BMP 04/29/17 01:00 Sodium 134 L Potassium 4.1 Chloride 97 L Carbon Dioxide 28 BUN 16 Creatinine 1.06 Glucose 128 H Calcium 8.9 Liver Function 04/29/17 Range/Units 01:00 Total Bilirubin 0.6 (0.2-1.2) mg/dL AST 24 (5-34) Units/L ALT 15 (0-55) Units/L Alkaline Phosphatase 39 (38-126) Units/L Albumin 3.5 (3.5-5.0) g/dL - ABG Interpretation ABG results: PT/INR, D-dimer PT 11.6 Seconds (9.4-12.1) 04/28/17 00:15 Consult Discharge Plan - Plan Referrals: Ronaldo Parr MD [Primary Care Provider] - <Riknu Loja - Last Filed: 04/29/17 16:38> Date of Encounter: 04/29/17 - Constitutional Vitals: Temp Pulse Resp BP Pulse Ox 98.1 F 77 20 181/92 94 04/29/17 15:26 04/29/17 15:26 04/29/17 15:26 04/29/17 15:26 04/29/17 15:26 Internal Medicine: Result - Labs CBC & Chem 7: 04/29/17 01:00 04/29/17 01:00 Labs: Short CBC 04/29/17 Range/Units 01:00 WBC 8.8 (4.3-11.1) K/mcL Hgb 13.4 D (12.9-16.9) g/dL Hct 39.3 (37.5-50.1) % Plt Count 191 (140-400) K/mcL Neutrophils # 5.2 (1.6-8.9) K/mcL BMP 04/29/17 01:00 Sodium 134 L Potassium 4.1 Chloride 97 L Carbon Dioxide 28 BUN 16 Creatinine 1.06 Glucose 128 H Calcium 8.9 Liver Function 04/29/17 Range/Units 01:00 Total Bilirubin 0.6 (0.2-1.2) mg/dL AST 24 (5-34) Units/L ALT 15 (0-55) Units/L Alkaline Phosphatase 39 (38-126) Units/L Albumin 3.5 (3.5-5.0) g/dL - ABG Interpretation ABG results: PT/INR, D-dimer PT 11.6 Seconds (9.4-12.1) 04/28/17 00:15 - Attending Attestation I have seen and examined patient independently. I have discussed with resident DR Leyva regarding the management plan. Agree with the documentation. Patient feels fine, looks anxious. No further complaint. Continue closer monitor patient. Place klonopin 0.5mg po bid for anxiety.
[2017-04-29] MEDS ORDERED: clonazePAM 0.5 MG TABLET PO PRN (12:35)
[2017-04-29] MEDS: clonazePAM 0.5 MG TABLET PO SCH ×2 (16:44→22:10)
[2017-04-29] MEDS ORDERED: clonazePAM 0.5 MG TABLET PO SCH (21:00)
[2017-04-30 01:31] LABS: Basophils # 0.1 K/mcL (0.0-0.2); Basophils % 0.7 %; Eosinophils # 0.2 K/mcL (0.0-0.6); Eosinophils % 2.7 %; Hemoglobin 13.2 g/dL (12.9-16.9); Immature Granulocytes % 0.2 % (0-4); Lymphocytes # 2.1 K/mcL (0.6-4.6); Lymphocytes % 23.7 %; Mean Corpuscular HGB Conc 34.7 g/dL (31.6-35.5); Mean Corpuscular Volume 89.2 fL (83.0-100.0); Mean Platelet Volume 10.6 fL (9.4-12.4); Monocytes # 1.1 K/mcL (0.0-1.3); Monocytes % 12.6 %; Neutrophils # 5.3 K/mcL (1.6-8.9); Platelet Count 202 K/mcL (140-400); Red Blood Count 4.26 M/mcL (4.19-5.50); Red Cell Distribution Width 12.9 % (11.5-14.5); Segmented Neutrophils % 60.1 %
[2017-04-30 01:43] LABS: Alanine Aminotransferase 16 Units/L (0-55); Albumin 3.5 g/dL (3.5-5.0); Albumin/Globulin Ratio 1.3 (1.1-2.2); Alkaline Phosphatase 38 Units/L (38-126); Aspartate Amino Transferase 23 Units/L (5-34); BUN/Creatinine Ratio 17 (6-26); Bilirubin,Total 0.6 mg/dL (0.2-1.2); Blood Urea Nitrogen 18 mg/dL (8-26); Calcium 8.7 mg/dL (8.6-10.8); Carbon Dioxide 27 mEq/L (19-29); Chloride 97 mEq/L (98-109); Globulin 2.7 g/dL (2.4-3.5); Glucose 117 mg/dL (70-99); Osmolality,Calculated 277 (280-300); Potassium 4.3 mEq/L (3.5-4.5); Sodium 132 mEq/L (136-145); Total Protein 6.2 g/dL (6.0-8.3); eGFR For African Americans > 60 (> 60); eGFR For Non-African Americans > 60 (> 60)
[2017-04-30] MEDS: clonazePAM 0.5 MG TABLET PO SCH ×2 (08:10→21:42)
[2017-04-30] MEDS: Aspirin Enteric Coated 81 MG Tablet PO SCH (08:10)
[2017-04-30] MEDS: Insulin LISPRO 300 UNITS/3 ML VIAL SQ SCH ×4 (08:13→21:42)
--- NOTE | 2017-04-30 14:26 | Internal Med Progress Note ---
<Darshan Leyva - Last Filed: 04/30/17 14:24> Date of Encounter: 04/30/17 Time of Encounter: 14:24 - Assessment and plan (1) Homeless Current Visit: Yes Status: Acute Assessment and plan: patient was formerly at [facility] because he was placed there by his social security assessor. he left [place] a few days ago because he did not like how he was treated there. he left and stayed in the [facility] a few days. consult to sr. social media & mobile manager for placement. awaiting placement at [facility]. (2) Leukocytosis Current Visit: Yes Status: Resolved Assessment and plan: resolved. Plan: continue oral hydration. no signs of infection at this time. UA shows no signs of UTI discontinued ceftriaxone and monitor. Qualifiers: Leukocytosis type: unspecified Qualified Code(s): D72.829 - Elevated white blood cell count, unspecified (3) COPD (chronic obstructive pulmonary disease) Current Visit: Yes Status: Chronic Assessment and plan: lungs clear on exam. change duonebs to PRN not in acute exacerbation. Qualifiers: COPD type: unspecified COPD Qualified Code(s): J44.9 - Chronic obstructive pulmonary disease, unspecified (4) Diabetes Current Visit: Yes Status: Chronic Assessment and plan: was taking metformin, but has not been taking it due to leaving [facility] and being homeless. continue medium dose sliding scale, ADA diet. A1C 5.7% ACHS accuchecks. Qualifiers: Diabetes mellitus type: type 2 Diabetes mellitus complication status: with unspecified complications Diabetes mellitus marine oil terminal superintendent insulin use: without marine oil terminal superintendent use Qualified Code(s): E11.8 - Type 2 diabetes mellitus with unspecified complications (5) HTN (hypertension) Current Visit: Yes Status: Chronic Assessment and plan: continue lisinopril. patient has hx of HTN but was not on any meds. Qualifiers: Hypertension type: essential hypertension Qualified Code(s): I10 - Essential (primary) hypertension (6) HLD (hyperlipidemia) Current Visit: Yes Status: Chronic Assessment and plan: Hx of chronic HLD. Patient currently not taking medications due to being homeless. Lipid panel ordered in a.m. labs. 10 year ASCVD risk calculated at 46.7%. high intensity statin recommended Plan: stop atorvastatin 20, change to atorvastatin 40 Qualifiers: Hyperlipidemia type: pure hypercholesterolemia Qualified Code(s): E78.00 - Pure hypercholesterolemia, unspecified; E78.0 - Pure hypercholesterolemia (7) DVT prophylaxis Current Visit: Yes Status: Acute Assessment and plan: ambulate TID EPCD avoid unnecessary needle sticks due to patient's severe anxiety. - Subjective Interval history: 67M evaluated at bedside. patient is still anxious today about his placement. he denies any new problems. - Constitutional Vitals: Temp Pulse Resp BP Pulse Ox 98.3 F 78 18 151/87 96 04/30/17 10:08 04/30/17 10:08 04/30/17 10:08 04/30/17 10:08 04/30/17 10:08 General appearance: Present: cooperative, disheveled, mild distress (Anxiety), A &O X 3, no acute distress, answers questions appropriately - Head Head exam: Present: atraumatic, normocephalic - Neck Neck exam general surgery: Present: supple, trachea midline - Respiratory Respiratory exam: Present: CTAB - Cardiovascular Cardiovascular exam: Present: RRR, +S1, +S2 - GI/Abdominal GI/Abdominal exam: Present: normal bowel sounds, soft. Absent: tenderness - Extremities Exam Extremities exam: Absent: cyanotic, pedal edema - Neurological Exam Neurological exam: Present: alert, oriented X3, no focal deficits - Psychiatric Psychiatric exam: Present: normal affect, normal mood - Skin Skin exam: Present: intact Internal Medicine: Result - Labs CBC & Chem 7: 04/30/17 01:12 04/30/17 01:12 Labs: Short CBC 04/30/17 Range/Units 01:12 WBC 8.8 (4.3-11.1) K/mcL Hgb 13.2 (12.9-16.9) g/dL Hct 38.0 (37.5-50.1) % Plt Count 202 (140-400) K/mcL Neutrophils # 5.3 (1.6-8.9) K/mcL BMP 04/30/17 01:12 Sodium 132 L Potassium 4.3 Chloride 97 L Carbon Dioxide 27 BUN 18 Creatinine 1.04 Glucose 117 H Calcium 8.7 Liver Function 04/30/17 Range/Units 01:12 Total Bilirubin 0.6 (0.2-1.2) mg/dL AST 23 (5-34) Units/L ALT 16 (0-55) Units/L Alkaline Phosphatase 38 (38-126) Units/L Albumin 3.5 (3.5-5.0) g/dL - ABG Interpretation ABG results: PT/INR, D-dimer PT 11.6 Seconds (9.4-12.1) 04/28/17 00:15 Consult Discharge Plan - Plan Referrals: Ronaldo Parr MD [Primary Care Provider] - <Rinku Loja - Last Filed: 04/30/17 17:02> Date of Encounter: 04/30/17 - Constitutional Vitals: Temp Pulse Resp BP Pulse Ox 98.1 F 68 16 165/85 96 04/30/17 15:00 04/30/17 15:00 04/30/17 15:00 04/30/17 15:00 04/30/17 15:00 Internal Medicine: Result - Labs CBC & Chem 7: 04/30/17 01:12 04/30/17 01:12 Labs: Short CBC 04/30/17 Range/Units 01:12 WBC 8.8 (4.3-11.1) K/mcL Hgb 13.2 (12.9-16.9) g/dL Hct 38.0 (37.5-50.1) % Plt Count 202 (140-400) K/mcL Neutrophils # 5.3 (1.6-8.9) K/mcL BMP 04/30/17 01:12 Sodium 132 L Potassium 4.3 Chloride 97 L Carbon Dioxide 27 BUN 18 Creatinine 1.04 Glucose 117 H Calcium 8.7 Liver Function 04/30/17 Range/Units 01:12 Total Bilirubin 0.6 (0.2-1.2) mg/dL AST 23 (5-34) Units/L ALT 16 (0-55) Units/L Alkaline Phosphatase 38 (38-126) Units/L Albumin 3.5 (3.5-5.0) g/dL - ABG Interpretation ABG results: PT/INR, D-dimer PT 11.6 Seconds (9.4-12.1) 04/28/17 00:15 - Attending Attestation I saw and examined the patient independently. I have discussed with resident Dr Leyva regarding the management plan. Agree with the documentation. Patient is less anxious. No further complaint. Vitals generally stable. On PTOT. Will consult social security assessor for placement.
[2017-05-01] MEDS: Acetaminophen 325 MG TABLET PO PRN (05:30)
[2017-05-01 06:18] LABS: Basophils # 0.1 K/mcL (0.0-0.2); Basophils % 0.8 %; Eosinophils # 0.2 K/mcL (0.0-0.6); Eosinophils % 3.3 %; Hematocrit 39.9 % (37.5-50.1); Hemoglobin 13.9 g/dL (12.9-16.9); Immature Granulocytes % 0.3 % (0-4); Lymphocytes # 1.5 K/mcL (0.6-4.6); Lymphocytes % 23.1 %; Mean Corpuscular HGB Conc 34.8 g/dL (31.6-35.5); Mean Corpuscular Hemoglobin 30.7 pg (28.0-33.3); Mean Corpuscular Volume 88.1 fL (83.0-100.0); Mean Platelet Volume 11.3 fL (9.4-12.4); Monocytes # 0.8 K/mcL (0.0-1.3); Monocytes % 12.4 %; Platelet Count 202 K/mcL (140-400); Red Blood Count 4.53 M/mcL (4.19-5.50); Red Cell Distribution Width 12.6 % (11.5-14.5); Segmented Neutrophils % 60.1 %
[2017-05-01 06:35] LABS: Alanine Aminotransferase 19 Units/L (0-55); Albumin 3.9 g/dL (3.5-5.0); Albumin/Globulin Ratio 1.4 (1.1-2.2); Alkaline Phosphatase 41 Units/L (38-126); Aspartate Amino Transferase 24 Units/L (5-34); BUN/Creatinine Ratio 17 (6-26); Bilirubin,Total 0.6 mg/dL (0.2-1.2); Blood Urea Nitrogen 15 mg/dL (8-26); Calcium 9.2 mg/dL (8.6-10.8); Carbon Dioxide 29 mEq/L (19-29); Chloride 93 mEq/L (98-109); Globulin 2.7 g/dL (2.4-3.5); Glucose 143 mg/dL (70-99); Osmolality,Calculated 271 (280-300); Potassium 4.4 mEq/L (3.5-4.5); Sodium 129 mEq/L (136-145); Total Protein 6.6 g/dL (6.0-8.3); eGFR For African Americans > 60 (> 60); eGFR For Non-African Americans > 60 (> 60)
[2017-05-01] MEDS: Insulin LISPRO 300 UNITS/3 ML VIAL SQ SCH ×5 (07:28→22:02)
[2017-05-01] MEDS: Aspirin Enteric Coated 81 MG Tablet PO SCH (08:56)
[2017-05-01] MEDS: clonazePAM 0.5 MG TABLET PO SCH ×2 (08:57→22:01)
[2017-05-01] MEDS: amLODIPine 5 MG TABLET PO SCH (15:05)
--- NOTE | 2017-05-01 15:23 | Internal Med Progress Note ---
Date of Encounter: 05/01/17 Time of Encounter: 14:30 - Assessment and plan (1) Leukocytosis Current Visit: Yes Status: Resolved Assessment and plan: resolved. no signs of infection at this time. UA shows no signs of UTI Qualifiers: Leukocytosis type: unspecified Qualified Code(s): D72.829 - Elevated white blood cell count, unspecified (2) Physical deconditioning Current Visit: Yes Status: Acute Assessment and plan: PT / OT eval May need SNF placement.. SW working on it (3) Homeless Current Visit: Yes Status: Acute Assessment and plan: patient was formerly at [facility] because he was placed there by his adoption social worker. he left [place] a few days ago because he did not like how he was treated there. he left and stayed in the [facility] a few days. SW working on placement (4) COPD (chronic obstructive pulmonary disease) Current Visit: Yes Status: Chronic Assessment and plan: not in acute exacerbation Cont duonebs PRN Qualifiers: COPD type: unspecified COPD Qualified Code(s): J44.9 - Chronic obstructive pulmonary disease, unspecified (5) HTN (hypertension) Current Visit: Yes Status: Chronic Assessment and plan: fairly controlled Inc Lisinopril t 20mg also added Norvasc 10mg daily Cont hydralazine IV PRN Qualifiers: Hypertension type: essential hypertension Qualified Code(s): I10 - Essential (primary) hypertension (6) Diabetes Current Visit: Yes Status: Chronic Assessment and plan: A1C 5.7% cont Metformin ACHS accuchecks. Qualifiers: Diabetes mellitus type: type 2 Diabetes mellitus complication status: with unspecified complications Diabetes mellitus long-term insulin use: without longitudinal float operator use Qualified Code(s): E11.8 - Type 2 diabetes mellitus with unspecified complications (7) HLD (hyperlipidemia) Current Visit: Yes Status: Chronic Assessment and plan: on atorvastatin 40 Qualifiers: Hyperlipidemia type: pure hypercholesterolemia Qualified Code(s): E78.00 - Pure hypercholesterolemia, unspecified; E78.0 - Pure hypercholesterolemia (8) Adjustment disorder with mixed disturbance of emotions and conduct Current Visit: Yes Status: Acute Assessment and plan: Need to f/u with Psych as an out pt (9) History of schizophrenia Current Visit: Yes Status: Acute (10) DVT prophylaxis Current Visit: Yes Status: Acute Assessment and plan: ambulate TID EPCD - Subjective Interval history: Mr. Castillo is a 67 year old male with medical history of COPD, diabetes controlled with oral anti-hyperglycemics, hyperlipidemia, and hypertension presented to ED with chief complaint of weakness, dizziness, difficulty urinating, and homelessness. He was admitted here for physical deconditioning and generalized weakness. Pt was seen and examined at bed side. He is alert, awake and O x 3, denied any CP / SOB. - Constitutional Vitals: Temp Pulse Resp BP Pulse Ox 97.9 F 88 20 165/78 95 05/01/17 15:17 05/01/17 15:17 05/01/17 15:17 05/01/17 15:17 05/01/17 15:17 General appearance: Present: cooperative, disheveled, A&O X 3, no acute distress , answers questions appropriately - Head Head exam: Present: atraumatic, normal inspection - Respiratory Respiratory exam: Present: decreased breath sounds. Absent: rales, respiratory distress, rhonchi, wheezes - Cardiovascular Cardiovascular exam: Present: RRR, +S1, +S2. Absent: systolic murmur - GI/Abdominal GI/Abdominal exam: Present: normal bowel sounds, soft. Absent: rebound, rigid, tenderness - Extremities Exam Extremities exam: Absent: calf tenderness, pedal edema, tenderness - Back Exam Back exam: Absent: CVA tenderness (L), CVA tenderness (R) - Neurological Exam Neurological exam: Present: alert, oriented X3 - Psychiatric Psychiatric exam: Present: normal affect, normal mood Internal Medicine: Result - Labs CBC & Chem 7: 05/01/17 05:22 05/01/17 05:22 Labs: Short CBC 05/01/17 Range/Units 05:22 WBC 6.6 (4.3-11.1) K/mcL Hgb 13.9 (12.9-16.9) g/dL Hct 39.9 (37.5-50.1) % Plt Count 202 (140-400) K/mcL Neutrophils # 4.0 (1.6-8.9) K/mcL BMP 05/01/17 05:22 Sodium 129 L Potassium 4.4 Chloride 93 L Carbon Dioxide 29 BUN 15 Creatinine 0.88 Glucose 143 H Calcium 9.2 Liver Function 05/01/17 Range/Units 05:22 Total Bilirubin 0.6 (0.2-1.2) mg/dL AST 24 (5-34) Units/L ALT 19 (0-55) Units/L Alkaline Phosphatase 41 (38-126) Units/L Albumin 3.9 (3.5-5.0) g/dL - ABG Interpretation ABG results: PT/INR, D-dimer PT 11.6 Seconds (9.4-12.1) 04/28/17 00:15 Consult Discharge Plan - Plan Referrals: Ronaldo Parr MD [Primary Care Provider] -
[2017-05-02] MEDS: amLODIPine 5 MG TABLET PO SCH (07:34)
[2017-05-02] MEDS: Aspirin Enteric Coated 81 MG Tablet PO SCH (07:34)
[2017-05-02] MEDS: clonazePAM 0.5 MG TABLET PO SCH (07:35)
[2017-05-02] MEDS: Insulin LISPRO 300 UNITS/3 ML VIAL SQ SCH ×2 (08:04→12:48)
--- NOTE | 2017-05-02 11:29 | Discharge Summary ---
Date of Encounter: 05/02/17 Time of Encounter: 11:26 - Discharge Diagnosis (1) Leukocytosis Priority: Primary Status: Resolved Qualifiers: Leukocytosis type: unspecified Qualified Code(s): D72.829 - Elevated white blood cell count, unspecified (2) Physical deconditioning Priority: Primary Status: Acute (3) Homeless Priority: Primary Status: Acute (4) COPD (chronic obstructive pulmonary disease) Priority: Secondary Status: Chronic Qualifiers: COPD type: unspecified COPD Qualified Code(s): J44.9 - Chronic obstructive pulmonary disease, unspecified (5) HTN (hypertension) Priority: Secondary Status: Chronic Qualifiers: Hypertension type: essential hypertension Qualified Code(s): I10 - Essential (primary) hypertension (6) Diabetes Priority: Secondary Status: Chronic Qualifiers: Diabetes mellitus type: type 2 Diabetes mellitus complication status: with unspecified complications Diabetes mellitus lobsterman insulin use: without [facility] use Qualified Code(s): E11.8 - Type 2 diabetes mellitus with unspecified complications (7) HLD (hyperlipidemia) Priority: Secondary Status: Chronic Qualifiers: Hyperlipidemia type: pure hypercholesterolemia Qualified Code(s): E78.00 - Pure hypercholesterolemia, unspecified; E78.0 - Pure hypercholesterolemia (8) Adjustment disorder with mixed disturbance of emotions and conduct Priority: Secondary Status: Acute (9) History of schizophrenia Priority: Secondary Status: Acute (10) DVT prophylaxis Priority: Secondary Status: Acute - Discharge Medications Prescriptions: clonazePAM [Klonopin] 0.5 mg PO BID #15 tablet metFORMIN [Glucophage] 500 mg PO BIDWM #60 tablet Home Medications: Acetaminophen [Tylenol] 650 mg PO Q6HR PRN tablet 05/02/17 [Rx] Aspirin Enteric Coated [Aspirin EC] 81 mg PO DAILY tablet.dr 05/02/17 [Rx] Atorvastatin [Lipitor] 40 mg PO HS tablet 05/02/17 [Rx] Ipratropium/Albuterol Neb [Duoneb] 3 ml IH [id number] PRN inhsol 05/02/17 [Rx] Lisinopril [Zestril] 20 mg PO DAILY tablet 05/02/17 [Rx] Tamsulosin [Flomax] 0.4 mg PO DAILY capsule 05/02/17 [Rx] amLODIPine [Norvasc] 10 mg PO DAILY tablet 05/02/17 [Rx] clonazePAM [Klonopin] 0.5 mg PO BID #15 tablet 05/02/17 [Rx] metFORMIN [Glucophage] 500 mg PO BIDWM #60 tablet 05/02/17 [Rx] Allergies/Adverse Reactions: 3 Allergy/AdvReac Type Severity Reaction Status Date / Time No Known Allergies Allergy Verified 03/01/16 14:48 Date of admission: 04/28/17 15:08 Primary care physician: Ronaldo Parr MD - Patient Status Disposition: Transfer SNF Condition: Good Overall status at discharge: patient is back to baseline - Discharge Instructions Follow Up With: Ronaldo Parr MD [Primary Care Provider] - - Diet and Activity Activity: as per physical therapy Diet: low salt diet Hospital course: Mr. Castillo is a 67 year old male with medical history of COPD, diabetes controlled with oral anti-hyperglycemics, hyperlipidemia, and hypertension presented to ED with chief complaint of weakness, dizziness, difficulty urinating, and homelessness. He was admitted here for physical deconditioning and generalized weakness. Pt was admitted in the hospital and started him on IV hydration with symptomatic and supportive care. He is homeless and unable to take care of himself. Our SW did work with the pt to find a ECF for him. So will d/c him to ECF today in stable condition. - Time Spent with Patient Total time spent providing and/or coordinating discharge services: - Constitutional Vitals: Temp Pulse Resp BP Pulse Ox 98.5 F 87 16 144/83 96 05/02/17 09:56 05/02/17 09:56 05/02/17 09:56 05/02/17 09:56 05/02/17 09:56 General appearance: Present: cooperative, A&O X 3, no acute distress, answers questions appropriately - Head Head exam: Present: atraumatic, normal inspection - Neck Neck exam general surgery: Present: supple - Respiratory Respiratory exam: Present: decreased breath sounds, wheezes (mild). Absent: accessory muscle use, rales, respiratory distress, rhonchi - Cardiovascular Cardiovascular exam: Present: RRR, +S1, +S2. Absent: systolic murmur - GI/Abdominal GI/Abdominal exam: Present: normal bowel sounds, soft. Absent: rebound, rigid, tenderness - Extremities Exam Extremities exam: Absent: calf tenderness, pedal edema, tenderness - Back Exam Back exam: Absent: CVA tenderness (L), CVA tenderness (R) - Neurological Exam Neurological exam: Present: alert, oriented X3 - Psychiatric Psychiatric exam: Present: normal affect, normal mood
--- NOTE | 2017-05-02 15:32 | Physician Discharge Referral ---
ExtendedCare Referral Info Transfer To: F Provider in Charge after Transfer: PCP Institutional Level of Care: Skilled - Diagnosis (1) Leukocytosis Status: Resolved (2) Physical deconditioning Status: Acute (3) Homeless Status: Acute (4) COPD (chronic obstructive pulmonary disease) Status: Chronic (5) HTN (hypertension) Status: Chronic (6) Diabetes Status: Chronic (7) HLD (hyperlipidemia) Status: Chronic (8) Adjustment disorder with mixed disturbance of emotions and conduct Status: Acute (9) History of schizophrenia Status: Acute (10) DVT prophylaxis Status: Acute - Transfer Medications Prescriptions: clonazePAM [Klonopin] 0.5 mg PO BID #15 tablet metFORMIN [Glucophage] 500 mg PO BIDWM #60 tablet Home Medications: Acetaminophen [Tylenol] 650 mg PO Q6HR PRN tablet 05/02/17 [Rx] Aspirin Enteric Coated [Aspirin EC] 81 mg PO DAILY tablet. 05/02/17 [Rx] Atorvastatin [Lipitor] 40 mg PO HS tablet 05/02/17 [Rx] Ipratropium/Albuterol Neb [Duoneb] 3 ml IH [id number] PRN inhsol 05/02/17 [Rx] Lisinopril [Zestril] 20 mg PO DAILY tablet 05/02/17 [Rx] Tamsulosin [Flomax] 0.4 mg PO DAILY capsule 05/02/17 [Rx] amLODIPine [Norvasc] 10 mg PO DAILY tablet 05/02/17 [Rx] clonazePAM [Klonopin] 0.5 mg PO BID #15 tablet 05/02/17 [Rx] metFORMIN [Glucophage] 500 mg PO BIDWM #60 tablet 05/02/17 [Rx] Allergies/Adverse Reactions: 3 Allergy/AdvReac Type Severity Reaction Status Date / Time No Known Allergies Allergy Verified 03/01/16 14:48 - Respiratory Orders Smoking Cessation: Smoking cessation has been advised. For more information, call the [place] Tobacco Quit Line at 1-979-DEPQ-NOW. CERTIFICATION: I certify that the transfer of the above named patient to an Extended Care Facility is necessary for the continuing treatment of the diagnosis listed. The above information is true and accurate reflection of patient's current condition. Confidential - Redisclosure prohibited without a patient's written consent.
[2017-05-02 15:36] VITALS: BP 134/84
== END 2017-05-02 17:47 | DRG 816 ==
LOC: EMEROO 14:41 → 3NENU 14:41 → SUATTDRO 04-28 15:08
PROVIDERS: ADMIT Internal Medicine; ATTEND Family Medicine